=== PATIENT | female | born 1990 | race African-American/Black ===

== ENCOUNTER 2016-11-18 03:42 | Emergency (ER) | payer OTHER ==
[~2016-11-18 03:42] MED LIST: BACTRIM DS TABL1 TA1 PO; COLACE; DULCOLAX5 M1; IRON; IRON1 TA1; KEFLEX PO; MACROBID100 M1 PO; MEDROL4 MG/DOSE- PO; METROGEL60 GM VAG; NO MEDICATIONS; PHENERGAN25 MG; PRENATAL1 TA1; PRENATAL1 TA1 PO; ROBAXIN500 MG PO; VITAMINS; VOLTAREN50 MG PO; ZOFRAN ODT4 MG PO
[2016-11-18 03:44] LABS: INFLUENZA A NEG (NEG); INFLUENZA B NEG (NEG)
== END 2016-11-18 04:15 | disposition home or self-care (01) ==
LOC: SED 03:42
PROVIDERS: Emergency Medicine
DX: J01.90 Acute sinusitis, unspecified (principal); F17.200 Nicotine dependence, unspecified, uncomplicated
CPT/HCPCS: 87651; 87804; 99282

== ENCOUNTER 2017-03-20 13:47 | Emergency (ER) | payer OTHER | END 2017-03-20 15:28 | disposition home or self-care (01) | LOC: SED 13:47 | DX: M54.5 Low back pain (principal); G89.29 Other chronic pain; F17.210 Nicotine dependence, cigarettes, uncomplicated; M41.9 Scoliosis, unspecified | CPT/HCPCS: 96372; 99283; J1885; J2360 ==

== ENCOUNTER 2017-04-04 05:08 | Emergency (ER) | payer OTHER ==
--- NOTE | ~2017-04-04 | CR281 ---
[facility] A Service of [facility] & [facility] RADIOLOGY TEXT RESULTS PATIENT: ANDREY CLEMENS LOCATION: [facility] : [birth year] UNIT #: [id number] AGE: [address]: COY CARBALLO APRN SEX: F ORDER DR: [id number] [facility] [address] [place], [place] [address] [id number] E MR#: [id number] Acc #: [id number] NAME: ANDREY CLEMENS : 1990 SEX: F STUDY DATE/TIME: 04/04/2017 6:10 UNIT: [facility] ROOM: STUDY DESCRIPTION: CR Wrist Min 3 View Lt Attending Physician: Coy Carballo Aprn Ordering Physician: Coy Carballo Aprn Primary Care Physician: [facility] MEDICAL IMAGING REPORT This report is preliminary unless electronic signature is present EXAM Left wrist INDICATION Left wrist pain for 4 days with swelling after falling in shower. FINDINGS Three views of the left wrist were obtained. No fracture is identified. The bones appear normal. IMPRESSION Normal left wrist. Dictated by... Volodymyr Vanegas M.D. THIS IS AN ELECTRONICALLY VERIFIED REPORT Volodymyr Vanegas M.D. at 04/04/2017 3:55 PM Lillie TD: 04/04/2017 08:37 JOB #: [id number] MEDICAL IMAGING REPORT Page 1 of 1 COPY
== END 2017-04-04 07:02 | disposition home or self-care (01) ==
LOC: CED 05:08
DX: S63.502A Unspecified sprain of left wrist, initial encounter (principal); F17.210 Nicotine dependence, cigarettes, uncomplicated; W17.89XA Other fall from one level to another, initial encounter; Y92.009 Unspecified place in unspecified non-institutional (private) residence as the place of occurrence of the external cause
CPT/HCPCS: 29125; 73110; 99283